=== PATIENT | female | born 2005 | race Caucasian/White ===

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

== ENCOUNTER → 2025-07-13 | Outpatient (REF) | payer OTHER ==
[~2025-07-13] MED LIST: ACETAMINOPHEN-1 EAC4 PO; FIORICET 50-301 EACH PO; ONDANSETRON ODT4 MG SL
== END ==
LOC: DX 08:08
PROVIDERS: ATTEND Nurse Practitioner
DX: Z87.19 Personal history of other diseases of the digestive system (principal)
CPT/HCPCS: 74250; 81025

== ENCOUNTER 2025-07-25 19:27 | Emergency (ER) | payer OTHER ==
[~2025-07-25] VITALS: Ht 167.6 cm; Wt 68.0 kg
[2025-07-25] MEDS ORDERED: IOPAMIDOL 370 MG/ML 100 ML INFUS..BTL INJ ONE (21:51)
[2025-07-25 23:32] VITALS: PULSE 69; RESP 16; TEMP 98.6
[2025-07-25 23:34] VITALS: BP 121/77; PULSE 69; RESP 16; TEMP 98.6; O2SAT 99
[2025-07-27 20:09] LABS: CHLAMYDIA NUC AMP Negative (Negative)
== END 2025-07-25 23:33 | disposition home or self-care (01) ==
LOC: FSED 19:36
DX: N89.8 Other specified noninflammatory disorders of vagina (principal); K50.90 Crohn's disease, unspecified, without complications; Z98.0 Intestinal bypass and anastomosis status; F17.210 Nicotine dependence, cigarettes, uncomplicated; Z11.52 Encounter for screening for COVID-19
CPT/HCPCS: 0223U; 74177; 80048; 80076; 81003; 81025; 83518 ×2; 85025; 87081; 87205; 87210; 87400; 87491; 87591; 99284; Q9967

== ENCOUNTER → 2025-08-02 | Day surgery (SDC) | payer OTHER ==
[~2025-08-02] MED LIST changes: +FENTANYL CITRATE/PF 100MCG/2 ML INJ ONE; +LIDOCAINE HCL 2% LOCAL INJ 5 ML SDV VIAL INJ ONE; +ONDANSETRON HCL INJ 2MG/ML 2ML 2 MG/ML VIAL ONE; +PROPOFOL IV EMULSION 10 MG/ML 20 ML VIAL ONE
[2025-08-02] MEDS: LACTATED RINGER'S 1,000 ML ONE (11:26)
[2025-08-02 11:57] VITALS: TEMP 97.8
[2025-08-02 12:10] VITALS: BP 95/56; PULSE 80; RESP 15; O2SAT 99
== END | disposition home or self-care (01) ==
LOC: OR 09:59
PROVIDERS: ATTEND Internal Medicine Gastroenterology
DX: K29.50 Unspecified chronic gastritis without bleeding (principal); K31.89 Other diseases of stomach and duodenum; Z98.84 Bariatric surgery status; Z93.2 Ileostomy status; F17.290 Nicotine dependence, other tobacco product, uncomplicated; F41.8 Other specified anxiety disorders; D64.9 Anemia, unspecified
CPT/HCPCS: 43239; 81025; J2003; J2405; J2470; J2704; J3010; J7121

== ENCOUNTER → 2025-08-18 | Day surgery (SDC) | payer OTHER ==
[~2025-08-18] MED LIST changes: -FENTANYL CITRATE/PF 100MCG/2 ML INJ ONE; +FLUMAZENIL 0.5MG/ 5ML VIAL ONE; +MIDAZOLAM HCL 2 MG/2 ML VIAL ONE
[2025-08-18] MEDS: LACTATED RINGER'S 1,000 ML ONE (13:49)
[2025-08-18 15:41] VITALS: TEMP 98.3
[2025-08-18 16:10] VITALS: BP 115/78; PULSE 82; RESP 16; O2SAT 100
[2025-08-18 16:39] LABS: CDIFF AG QUIK CHEK NEGATIVE (NEGATIVE); CDIFF TOX QUIK CHEK NEGATIVE (NEGATIVE); WBC,FECAL (FECAL LACTOFERRIN) NEGATIVE (NEGATIVE)
== END | disposition home or self-care (01) ==
LOC: OR 12:58
PROVIDERS: ATTEND Internal Medicine Gastroenterology
DX: D64.9 Anemia, unspecified (principal); K52.9 Noninfective gastroenteritis and colitis, unspecified; Z87.19 Personal history of other diseases of the digestive system; Z90.49 Acquired absence of other specified parts of digestive tract; Z93.2 Ileostomy status; Z98.84 Bariatric surgery status; R01.1 Cardiac murmur, unspecified; F17.290 Nicotine dependence, other tobacco product, uncomplicated; Z71.6 Tobacco abuse counseling; Z88.1 Allergy status to other antibiotic agents; Z88.8 Allergy status to other drugs, medicaments and biological substances
CPT/HCPCS: 45378; 81025; 83630; 83993; 86140; 87045; 87177; 87324; 87328; 87449; J2003; J2250; J2405